=== PATIENT | female | born 1990 | race Caucasian/White ===

== ENCOUNTER → 2023-05-18 | Outpatient (CLI) | payer BC, OTHER ==
[2023-05-18 11:13] LABS: PROTHROMBIN TIME 26.6 SECONDS (9.0-12.0)
== END ==
LOC: LAB 10:33
PROVIDERS: Internal Medicine
DX: D68.59 Other primary thrombophilia (principal)

== ENCOUNTER → 2023-05-21 | Outpatient (CLI) | payer BC, OTHER ==
[2023-05-21 12:08] LABS: BASO # 0.02 K/mm3 (0.02-0.10); EOS # 0.12 K/mm3 (0.04-0.40); EOS % 2.3 % (1.0-5.0); HEMATOCRIT 37.3 % (37.0-47.0); HEMOGLOBIN 12.1 g/dL (12.5-16.0); MEAN CELL VOLUME 88 fl (78-100); MEAN CORPUSCULAR HEMOGLOBIN 29 pg (27-31); MEAN CORPUSCULAR HGB CONC 32 g/dL (33-37); MEAN PLATELET VOLUME 9.6 fl (7.4-10.4); MONO # 0.49 K/mm3 (0.20-0.80); PLATELET COUNT 327 K/mm3 (130-400); RED BLOOD COUNT 4.22 M/mm3 (4.10-5.30); RED CELL DISTRIBUTION WIDTH 12.8 % (11.5-14.5); WHITE BLOOD COUNT 5.2 K/mm3 (4.8-10.8)
[2023-05-21 12:14] LABS: ALBUMIN 4.1 g/dL (3.5-5.0)
[2023-05-21 12:15] LABS: POTASSIUM 3.1 mmol/L (3.5-5.1)
[2023-05-21 12:16] LABS: CALCIUM 9.6 mg/dL (8.3-10.5)
[2023-05-21 12:17] LABS: TOTAL PROTEIN 7.5 g/dL (6.4-8.3)
[2023-05-21 12:19] LABS: TOTAL BILIRUBIN 0.9 mg/dL (0.2-1.2)
[2023-05-21 12:24] LABS: MAGNESIUM 1.79 mg/dL (1.60-2.60)
[2023-05-21 23:12] LABS: FOLATE (FOLIC ACID) 10.5 ng/mL (2.0-20.0)
== END ==
LOC: LAB 11:25
PROVIDERS: Internal Medicine
DX: G47.19 Other hypersomnia (principal); R20.2 Paresthesia of skin; I10 Essential (primary) hypertension; E03.9 Hypothyroidism, unspecified; K90.9 Intestinal malabsorption, unspecified

== ENCOUNTER → 2023-05-24 | Outpatient (CLI) | payer BC, OTHER ==
[2023-05-24 11:29] LABS: PROTHROMBIN TIME 26.7 SECONDS (9.0-12.0)
== END ==
LOC: LAB 11:05
PROVIDERS: Internal Medicine
DX: D68.59 Other primary thrombophilia (principal)

== ENCOUNTER → 2023-05-31 | Outpatient (CLI) | payer BC, OTHER ==
[2023-05-31 10:17] LABS: PROTHROMBIN TIME 22.9 SECONDS (9.0-12.0)
== END ==
LOC: LAB 09:44
PROVIDERS: Internal Medicine
DX: D68.59 Other primary thrombophilia (principal)

== ENCOUNTER → 2023-06-24 | Outpatient (CLI) | payer BC, OTHER ==
[2023-06-24 12:04] LABS: PROTHROMBIN TIME 17.8 SECONDS (9.0-12.0)
== END ==
LOC: LAB 11:30
PROVIDERS: Internal Medicine
DX: D68.59 Other primary thrombophilia (principal)

== ENCOUNTER → 2023-06-25 | Outpatient (CLI) | payer BC, OTHER ==
[2023-06-25 16:43] LABS: POTASSIUM 3.7 mmol/L (3.5-5.1)
[2023-06-25 16:44] LABS: CALCIUM 9.6 mg/dL (8.3-10.5)
[2023-06-25 16:50] LABS: MAGNESIUM 1.94 mg/dL (1.60-2.60)
== END ==
LOC: LAB 16:08
PROVIDERS: Internal Medicine
DX: Z76.89 Persons encountering health services in other specified circumstances (principal); E87.6 Hypokalemia; I10 Essential (primary) hypertension; E03.9 Hypothyroidism, unspecified; I66.09 Occlusion and stenosis of unspecified middle cerebral artery; M32.9 Systemic lupus erythematosus, unspecified; D68.61 Antiphospholipid syndrome; E28.2 Polycystic ovarian syndrome

== ENCOUNTER → 2023-07-15 | Outpatient (CLI) | payer BC, OTHER | LOC: LAB 11:09 | PROVIDERS: Internal Medicine | DX: D68.59 Other primary thrombophilia (principal) ==

== ENCOUNTER → 2023-08-12 | Outpatient (CLI) | payer BC, OTHER ==
[2023-08-12 15:02] LABS: PROTHROMBIN TIME 21.5 SECONDS (9.0-12.0)
== END ==
LOC: LAB 14:19
PROVIDERS: Internal Medicine
DX: D68.59 Other primary thrombophilia (principal)

== ENCOUNTER → 2024-03-10 | Outpatient (CLI) | payer BC, OTHER ==
[2024-03-10 17:21] LABS: BASO # 0.03 K/mm3 (0.02-0.10); EOS # 0.15 K/mm3 (0.04-0.40); EOS % 2.2 % (1.0-5.0); HEMATOCRIT 40.2 % (37.0-47.0); HEMOGLOBIN 13.4 g/dL (12.5-16.0); LYMPH# 1.22 K/mm3 (1.50-4.00); MEAN CELL VOLUME 86 fl (78-100); MEAN CORPUSCULAR HEMOGLOBIN 29 pg (27-31); MEAN CORPUSCULAR HGB CONC 33 g/dL (33-37); MEAN PLATELET VOLUME 9.2 fl (7.4-10.4); MONO # 0.73 K/mm3 (0.20-0.80); NEU # 4.63 K/mm3 (1.40-6.50); PLATELET COUNT 351 K/mm3 (130-400); RED CELL DISTRIBUTION WIDTH 12.6 % (11.5-14.5); WHITE BLOOD COUNT 6.8 K/mm3 (4.8-10.8)
[2024-03-10 17:27] LABS: ALBUMIN 4.2 g/dL (3.5-5.0)
[2024-03-10 17:29] LABS: CALCIUM 9.7 mg/dL (8.3-10.5)
== END ==
LOC: LAB 16:55
DX: N18.1 Chronic kidney disease, stage 1 (principal); E55.9 Vitamin D deficiency, unspecified

== ENCOUNTER → 2024-04-28 | Outpatient (CLI) | payer BC, OTHER ==
[2024-04-28 15:15] LABS: BASO # 0.01 K/mm3 (0.02-0.10); EOS # 0.16 K/mm3 (0.04-0.40); EOS % 3.2 % (1.0-5.0); HEMATOCRIT 41.5 % (37.0-47.0); HEMOGLOBIN 13.3 g/dL (12.5-16.0); MEAN CELL VOLUME 88 fl (78-100); MEAN CORPUSCULAR HEMOGLOBIN 28 pg (27-31); MEAN CORPUSCULAR HGB CONC 32 g/dL (33-37); MEAN PLATELET VOLUME 8.9 fl (7.4-10.4); MONO # 0.46 K/mm3 (0.20-0.80); NEU # 2.92 K/mm3 (1.40-6.50); PLATELET COUNT 348 K/mm3 (130-400); RED CELL DISTRIBUTION WIDTH 13.1 % (11.5-14.5); WHITE BLOOD COUNT 5.1 K/mm3 (4.8-10.8)
[2024-04-28 15:26] LABS: MAGNESIUM 1.98 mg/dL (1.60-2.60)
[2024-05-01 11:54] LABS: ALBUMIN 4.2 g/dL (3.5-5.0)
[2024-05-01 11:55] LABS: CALCIUM 9.3 mg/dL (8.3-10.5)
[2024-05-01 11:57] LABS: TOTAL PROTEIN 7.8 g/dL (6.4-8.3)
[2024-05-01 11:58] LABS: TOTAL BILIRUBIN 0.8 mg/dL (0.2-1.2)
== END ==
LOC: LAB 14:52
PROVIDERS: Internal Medicine
DX: I10 Essential (primary) hypertension (principal); E03.9 Hypothyroidism, unspecified; E78.2 Mixed hyperlipidemia; K90.9 Intestinal malabsorption, unspecified